=== PATIENT | female | born 1965 | race American Indian/Alaskan Native ===

== ENCOUNTER 2021-05-11 08:44 | Outpatient (CLI) | payer BC ==
--- NOTE | 2021-05-11 14:17 | Mammography Report ---
DIGITAL SCREENING MAMMOGRAM WITH TOMOSYNTHESIS WITH CAD, 05/11/2021 CLINICAL INFORMATION / INDICATION: Routine Screening Mammography. TECHNIQUE: Digital bilateral 2D and 3D mammography with tomosynthesis was obtained in the craniocaud al and mediolateral oblique projections. Computer-Aided Detection (CAD) analysis was used for interp retation of this study. COMPARISON: 02/24/2020, 12/24/2017 FINDINGS: Breast Density: The breasts are heterogeneously dense, which may obscure small masses. No dominant mass, suspicious calcifications, or architectural distortion in either breast. Postlumpectomy and radiation change, left breast. Biopsy clip, right breast. Overall, no interval brittanie nge in the appearance of the mammogram. IMPRESSION: No mammographic evidence of malignancy. Follow up recommendation: Routine yearly BI-RADS Category 2: Benign. A "normal" or negative report should not discourage follow up or biopsy of a clinically significant f inding. A written summary of these findings will be mailed to the patient. The patient will be entered into a mammography reporting system which will generate a reminder letter for the patient's next appointmen t at the appropriate interval. The [employer] recommends yearly mammograms starting at age 40 and continuing as l bernie as a woman is in good health. Breast MRI is recommended for women with an approximate 20-25% or greater lifetime risk of breast cancer, including women with a strong family history of breast or ova emir cancer or who have been treated for Hodgkin's disease. Signer Name: Leslye Byrd MD Signed: 05/11/2021 2:12 PM Workstation Name: [id number]
== END 2021-05-11 08:45 | disposition home or self-care (01) ==
LOC: SPVWC 08:44
PROVIDERS: ATTEND Surgery
DX: Z12.31 Encounter for screening mammogram for malignant neoplasm of breast (principal)
CPT/HCPCS: 77063; 77067

== ENCOUNTER 2021-06-03 07:39 | Outpatient (CLI) | payer BC ==
[2021-06-03 08:22] LABS: Blood Urea Nitrogen 11 mg/dL (7-17)
--- NOTE | 2021-06-03 12:34 | Cat Scan Report ---
CT OF CHEST, ABDOMEN, AND PELVIS WITH CONTRAST INDICATION: History of left breast cancer with lumpectomy, chemotherapy, and radiation in 2008 CONTRAST: 100 cc Omnipaque 300 IV COMPARISON: None available. All CT scans at this location are performed using CT dose reduction for ALARA by means of automated e xposure control. FINDINGS: No significant focal bony lesions are seen. No significant axillary or chest wall abnormali ties are noted. Surgical changes are seen in the left axilla. No mediastinal or hilar masses are seen . Calcified nodes are seen in the mediastinum and right hilum. No pleural effusions are seen. No obvi ous endobronchial lesions are noted. Large calcified granuloma is seen in the right upper lobe. No pu lmonary soft tissue nodules or masses are seen. No acute pulmonary infiltrates are noted. Gallbladder and bile ducts appear within normal limits. I see no abnormalities of the liver, spleen, pancreas, or adrenals. Moderate sized cyst is seen in the upper pole the right kidney measuring 5.7 c m and a small left renal cyst is noted. No urinary obstructive changes are noted. No lymphadenopathy is seen. No inflammatory changes are noted. No evidence of bowel obstruction is seen. Appendix appear s within normal limits. Distal portions of the colon are poorly distended for evaluation but I do not see definite inflammation. No lymphadenopathy is seen. Left ovarian cyst is seen measuring 3.3 cm wi th internal density of 43 Hounsfield units. No free fluid is noted. IMPRESSION: 1. No abnormalities are seen thought likely to represent recurrent or metastatic breast cancer 2. No acute abnormalities are seen 3. Left ovarian probable cyst at a size which is somewhat unusual at the patient's age. Recommend fol low-up with ultrasound. Signer Name: Harpal Witt MD Signed: 06/03/2021 12:29 PM Workstation Name: [id number]
== END 2021-06-03 07:40 | disposition home or self-care (01) ==
LOC: CT 07:39
PROVIDERS: ATTEND Internal Medicine Hematology & Oncology
DX: Z51.11 Encounter for antineoplastic chemotherapy (principal); C50.412 Malignant neoplasm of upper-outer quadrant of left female breast; N28.1 Cyst of kidney, acquired; N83.202 Unspecified ovarian cyst, left side; D50.9 Iron deficiency anemia, unspecified; E87.6 Hypokalemia; R97.8 Other abnormal tumor markers; D50.0 Iron deficiency anemia secondary to blood loss (chronic); K92.2 Gastrointestinal hemorrhage, unspecified; E55.9 Vitamin D deficiency, unspecified; R68.89 Other general symptoms and signs; Z17.1 Estrogen receptor negative status [ER-]
CPT/HCPCS: 36415; 71260; 74177; 82565; 84520; Q9967

== ENCOUNTER 2021-09-09 08:27 | Outpatient (CLI) | payer BC ==
--- NOTE | 2021-09-09 12:32 | Ultrasound Report ---
ULTRASOUND PELVIS INDICATION / CLINICAL INFORMATION: LEFT OVARIAN CYST. TECHNIQUE: Transabdominal and Transvaginal. Duplex Color Doppler used: Yes. COMPARISON: CT abdomen/pelvis 06/03/2021. FINDINGS: UTERUS: - Appearance: Retroverted and mildly heterogeneous. - Size (cm): 8.5 x 6.4 x 3.0 cm. - Endometrial Complex (if present): No significant abnormality.. Thickness in cm (if measured) = 0.2 cm. - Mass or cyst: Multiple uterine fibroids. The largest is calcified and is located left subserosal me asuring 2.3 x 2.2 x 1.7 cm. - Additional findings: None. RIGHT ADNEXA: The right ovary measures 2.4 x 1.0 x 1.2 cm. No significant ovarian cyst or mass. Ivelisse l color Doppler blood flow. LEFT ADNEXA: The left ovary measures 1.9 x 1.0 x 0.8 cm. There is a heterogeneous left adnexal mass s eparate from the ovary measuring 4.1 x 3.6 x 3.0 cm. No internal vascularity is identified. Normal ov eric color Doppler blood flow. URINARY BLADDER: No significant abnormality. FREE FLUID: None. ADDITIONAL FINDINGS: None. IMPRESSION: 1. 4.1 cm heterogeneous left adnexal mass. MRI of the pelvis with IV contrast is suggested for furthe r evaluation as neoplasm cannot be excluded. 2. Multiple uterine fibroids, as above. Scribed by: Deidra Leblanc RDMS Antoni Scribed: 09/09/2021 9:18 AM I have reviewed the images, agree with this report, and edited this report as needed. Signer Name: Chao Garces MD Signed: 09/09/2021 12:28 PM Workstation Name: [id number]
== END 2021-09-09 08:28 | disposition home or self-care (01) ==
LOC: US 08:27
PROVIDERS: ATTEND Internal Medicine Hematology & Oncology
DX: D50.0 Iron deficiency anemia secondary to blood loss (chronic) (principal)
CPT/HCPCS: 76830; 76856